=== PATIENT | male | born 1970 | race Caucasian/White ===

== ENCOUNTER 2022-05-13 22:49 | Inpatient (IN) ==
[2022-05-14 00:18] LABS: Basophils # (auto) 0.05 K/uL (0-0.2); Basophils % (auto) 0.9 %; Eosinophils # (auto) 0.38 K/uL (0-0.50); Hemoglobin 13.7 g/dl (14.0-18.0); Immature Granulocytes # (auto) 0.01 K/uL (0.00-0.02); Immature Granulocytes % (auto) 0.2 %; Lymphocytes # (auto) 1.64 K/uL (1.2-3.4); Lymphocytes % (auto) 30.1 %; Mean Corpuscular Hemoglobin 29.8 pg (25.0-34.0); Mean Corpuscular Hgb Conc 34.3 g/dL (32.0-36.0); Mean Corpuscular Volume 87.1 fL (80.0-100.0); Mean Platelet Volume 10.6 fL (9.4-12.4); Monocytes % (auto) 9.2 %; Neutrophils # (auto) 2.86 K/uL (1.4-6.5); Neutrophils % (auto) 52.6 %; Platelet Count 259 K/uL (130-400); RDW Coefficient of Variation 13.8 % (11.5-14.5); Red Blood Count 4.59 M/uL (4.63-6.08); White Blood Count 5.44 K/ul (4.8-10.8)
[2022-05-14 00:32] LABS: Albumin Globulin Ratio 1.5 (0.9-2); Albumin Level 4.4 gm/dl (3.4-5.0); BUN Creatinine Ratio 15.9 (10-20); Bilirubin,Total 0.5 mg/dl (0.2-1.0); Calcium 9.3 mg/dl (8.5-10.1); Creatinine Clr Calc Pharmacy 79.4 ml/min; Est GFR (African American) 67.6 ml/min; Est GFR (Non-African American) 58.4 ml/min; Globulin 2.9 gm/dl (2.5-4.0); Potassium 3.8 mmol/L (3.5-5.1); Total Protein 7.3 gm/dl (6.0-8.3)
[2022-05-14 00:36] LABS: Troponin I High Sensitivity 33.9 pg/ml (0-20)
--- NOTE | 2022-05-14 00:47 | Emergency Department Note ---
Impression & Plan Acute non-ST elevation myocardial infarction (NSTEMI) Admit to the [facility] ED Provider Note NAME: ALEX RAZATE JR AGE: 51 SEX: M ARRIVES VIA: Walk-In INFORMANT: Patient ED PROVIDER(S): Letty Wang DO CHIEF COMPLAINT: Abnormal EKG PLAN: Disposition: Admit to the [facility] Condition: Guarded MEDICAL DECISION MAKING: This is a 51-year-old male patient who was directed to come here to the emergency department by the retail store clerk on-call who read his EKG from 2 days ago and noted that it was abnormal. The patient had been having these episodes where he felt a hot sensation in his head and some chest discomfort in his upper chest which prompted him to see his PCP on Saturday. At that time, they did an EKG in the office which was noted to be abnormal. He was referred to a retail store clerk for final interpretation. The retail store clerk interpreted today and contacted the patient to come to the ER for evaluation. The retail store clerk forwarded that EKG to us here in the emergency department. I reviewed it and it exhibits ST segment elevation in the inferior leads concerning for ischemia. Today's EKG in the emergency department is completely normal. 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 He had no associated symptoms while doing so. The patient has an elevated troponin here in the emergency department. His presentation is concerning for NSTEMI. He will be heparinized. [facility] Nursing notes reviewed and agree with them. Prior medical records reviewed Vital Signs: reviewed and remarkable for hypertension Differential diagnosis: Cardiac ischemia, STEMI, NSTEMI, angina ER treatment provided: Oral aspirin IV heparin drip Diagnostics interpreted by me: ECG: Normal sinus rhythm at a rate of [address] segment elevation or signs of ischemia. There is no ectopy. Cardiac Monitoring: Normal sinus rhythm at 88 Laboratory studies: See below Imaging studies: As per my interpretation Portable chest x-ray: No acute pulmonary infiltrates or consolidations HPI: 51/M arrives for evaluation of abnormal EKG. Patient was seen by his PCP on Saturday for episodes of chest discomfort in his upper chest that were concerning for indigestion versus cardiac chest pain. The patient had an EKG at that time which was thought to be abnormal. He was referred to a retail store clerk for final interpretation. The retail store clerk interpreted the EKG tonight and contacted the patient to come to the emergency department because the EKG was noted to be abnormal. ROS: See above HPI for pertinent positives & negatives. A total of 10 systems reviewed and were otherwise negative. PAST MEDICAL HISTORY:Prediabetes PAST SURGICAL HISTORY:See Below FAMILY HISTORY:Patient's father has heart disease SOCIAL HISTORY:See Below HOME MEDICATIONS:See list ALLERGIES:See list VITALS:See Below PHYSICAL EXAMINATION: HEENT: Head - normocephalic and atraumatic Pupils are equal, round, and reactive to light. Extraocular eye muscles are intact, and sclera are anicteric. Nose - moist nasal mucosa without discharge. Mouth - moist buccal mucosa. Oropharynx is nonerythematous and there is no tonsillar exudate or edema noted. Neck: Supple; no cervical lymphadenopathy noted Heart: Regular rate and rhythm. There is a normal S1 and S2 with no murmurs, clicks, or gallops appreciated. Lungs: Clear to auscultation bilaterally with no wheezes, rales, or rhonchi. Abdomen: Soft, completely nontender, nondistended, with good bowel sounds. There are no palpable pulsatile masses or hepatosplenomegaly. There is no guarding, rigidity, or rebound noted. Extremities: No evidence of cyanosis, clubbing, or edema. There are easily palpable peripheral pulses. Skin: warm and dry with good turgor and no rashes. ED COURSE: Times/Reassessments: 2355: The patient was evaluated in room A-3. A complete history and physical was performed. A twelve-lead EKG was obtained today and compared to the one from Saturday. An IV lock was initiated and labs are drawn as above. An order was placed for continuous cardiac monitoring. The patient was in a normal sinus rhythm at a rate of 88. Patient was given aspirin. A chest x-ray was performed. Patient was asymptomatic here in the emergency department. Heparin drip was started. Letty Wang DO Past Med/Surg History Medical History Obesity Pre-diabetes Surgical History History of colonoscopy History of tonsillectomy [place] teeth removed HX Family History Mother Family history of cancer Cancer Breast cancer Brain cancer Father Hypertension Other No family history of adverse response to anesthesia No family history of bleeding disorder Denies family history of Heart disease Stroke Asthma Social History Smoking Status: Former smoker Tobacco Type: Cigarettes packs per day: 0.5; Years Smoked: 20; Hx Alcohol Use: No Hx Substance Use: No Preferred Language: Frisian Communication Ability: Effective Herbicide Service Sales Representative Required: No Beliefs That Will Affect Care: None marital status: Current Living Situation: Alone Current Living Situation Comment: DAUGHTER THERE 3-4 DAYS A WEEK 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: Yes Assistive Devices: None Allergies Allergies Allergy/AdvReac Type Severity Reaction Status Date / Time Penicillins Allergy Unknown PT DOESN'T Verified 05/04/21 07:25 KNOW, BEEN TOLD SINCE A KID Home Meds Home Medications Medication Instructions Recorded Confirmed metformin 500 mg tablet 500 mg PO BID 04/25/22 05/13/22 pantoprazole 40 mg tablet,delayed 40 mg PO DAILY 05/13/22 05/13/22 release Previous Rx's Medication Instructions Recorded aspirin 81 mg tablet,delayed 81 mg PO QAM #100 tabs 05/15/22 release atorvastatin 40 mg tablet 40 mg PO HS #30 tabs 05/15/22 metoprolol tartrate 25 mg tablet 12.5 mg PO BID #60 tabs 05/15/22 nitroglycerin 0.4 mg sublingual 0.4 mg sublingual Q5M PRN chest 05/15/22 tablet pain #25 tabs ticagrelor 90 mg tablet (Brilinta) 90 mg PO BID #60 tabs 05/15/22 Results & Data (ED) Vital Signs Vital Signs - 24 hr 05/13/22 22:54 05/14/22 00:31 05/14/22 00:31 Temperature 36.5 C Temperature Source Temporal Artery Scan Pulse Rate 94 H 88 Pulse Rate [Finger] 88 Pulse Rhythm Regular Pulse Rhythm [Finger] Regular Pulse Strength [Finger] Normal Respiratory Rate 20 20 18 Respiratory Effort / Characteristics Non-Labored Spontaneous Non-Labored Spontaneous Respiratory Depth Normal Normal Blood Pressure 156/101 H Blood Pressure [Right Arm] 168/119 H Blood Pressure Mean 119 Blood Pressure Mean [Right Arm] 135 Blood Pressure Position [Right Arm] Sitting Pulse Oximetry 97 99 99 Oxygen Delivery Method Room Air Room Air Room Air Sepsis Recent Fever Within 48 Hours No Sepsis New/Unexplained Change in Mental Status No Sepsis Action Taken by Nursing No Action Required Laboratory Data Result diagrams: 05/15/22 05:52 05/15/22 05:52 Lab Results 05/13/22 05/13/22 05/13/22 Range/Units 23:10 23:10 23:10 WBC 5.44 (4.8-10.8) K/ul RBC 4.59 L (4.63-6.08) M/uL Hgb 13.7 L (14.0-18.0) g/dl Hct 40.0 L (40.1-51.0) % MCV 87.1 (80.0-100.0) fL MCH 29.8 (25.0-34.0) pg MCHC 34.3 (32.0-36.0) g/dL RDW Std Deviation 44.0 (36.4-46.3) fL RDW Coeff of Rafaela 13.8 (11.5-14.5) % Plt Count 259 (130-400) K/uL MPV 10.6 (9.4-12.4) fL Immature Gran % (Auto) 0.2 % Neut % (Auto) 52.6 % Lymph % (Auto) 30.1 % Lyman % (Auto) 9.2 % Eos % (Auto) 7.0 % Baso % (Auto) 0.9 % Neut # (Auto) 2.86 (1.4-6.5) K/uL Lymph # (Auto) 1.64 (1.2-3.4) K/uL Lyman # (Auto) 0.50 (0.24-0.82) K/uL Eos # (Auto) 0.38 (0-0.50) K/uL Baso # (Auto) 0.05 (0-0.2) K/uL Immature Gran # (Auto) 0.01 (0.00-0.02) K/uL APTT 27.1 (21.0-31.0) Seconds PTT Ratio 1.0 Sodium 138 (136-145) mmol/L Potassium 3.8 (3.5-5.1) mmol/L Chloride 104 (98-107) mmol/L Carbon Dioxide 27 (21-32) mmol/L Anion Gap 7 (3-11) BUN 22 (6-23) mg/dl Creatinine 1.38 (0.6-1.4) mg/dl Est Cr Clr Drug Dosing 79.4 ml/min Est GFR ( Amer) 67.6 ml/min Est GFR (Non-Af Amer) 58.4 ml/min BUN/Creatinine Ratio 15.9 (10-20) Glucose 143 H (70-99(Fasting)) mg/dl Calcium 9.3 (8.5-10.1) mg/dl Total Bilirubin 0.5 (0.2-1.0) mg/dl AST 33 (13-39) U/L ALT 27 (7-52) U/L Alkaline Phosphatase 76 (34-104) U/L Troponin I High Sens 33.9 H (0-20) pg/ml Total Protein 7.3 (6.0-8.3) gm/dl Albumin 4.4 (3.4-5.0) gm/dl Globulin 2.9 (2.5-4.0) gm/dl Albumin/Globulin Ratio 1.5 (0.9-2) Lipase 27 (11-82) U/L SARS-CoV-2, RNA, NAAT (NEGATIVE) 05/14/22 Range/Units 01:36 WBC (4.8-10.8) K/ul RBC (4.63-6.08) M/uL Hgb (14.0-18.0) g/dl Hct (40.1-51.0) % MCV (80.0-100.0) fL MCH (25.0-34.0) pg MCHC (32.0-36.0) g/dL RDW Std Deviation (36.4-46.3) fL RDW Coeff of Rafaela (11.5-14.5) % Plt Count (130-400) K/uL MPV (9.4-12.4) fL Immature Gran % (Auto) % Neut % (Auto) % Lymph % (Auto) % Lyman % (Auto) % Eos % (Auto) % Baso % (Auto) % Neut # (Auto) (1.4-6.5) K/uL Lymph # (Auto) (1.2-3.4) K/uL Lyman # (Auto) (0.24-0.82) K/uL Eos # (Auto) (0-0.50) K/uL Baso # (Auto) (0-0.2) K/uL Immature Gran # (Auto) (0.00-0.02) K/uL APTT (21.0-31.0) Seconds PTT Ratio Sodium (136-145) mmol/L Potassium (3.5-5.1) mmol/L Chloride (98-107) mmol/L Carbon Dioxide (21-32) mmol/L Anion Gap (3-11) BUN (6-23) mg/dl Creatinine (0.6-1.4) mg/dl Est Cr Clr Drug Dosing ml/min Est GFR ( Amer) ml/min Est GFR (Non-Af Amer) ml/min BUN/Creatinine Ratio (10-20) Glucose (70-99(Fasting)) mg/dl Calcium (8.5-10.1) mg/dl Total Bilirubin (0.2-1.0) mg/dl AST (13-39) U/L ALT (7-52) U/L Alkaline Phosphatase (34-104) U/L Troponin I High Sens (0-20) pg/ml Total Protein (6.0-8.3) gm/dl Albumin (3.4-5.0) gm/dl Globulin (2.5-4.0) gm/dl Albumin/Globulin Ratio (0.9-2) Lipase (11-82) U/L SARS-CoV-2, RNA, NAAT NEGATIVE (NEGATIVE) Administered Medications Discontinued Medications Aspirin (Aspirin Chew 324 Mg) 324 mg PO NOW STA Stop: 05/14/22 01:42 Last Admin: 05/14/22 01:52 Dose: 324 mg Documented By: KAMRAN [facility]irin ([facility]in 81 Mg Ectab) [facility] Stop: 06/13/22 08:59 Last Admin: 05/15/22 08:14 Dose: 81 mg Documented By: Admin: 05/14/22 08:41 Dose: 81 mg Documented By: MOISES Atorvastatin Calcium (Atorvastatin 40 Mg Tab) 40 mg PO NOW STA Stop: 05/14/22 01:58 Last Admin: 05/14/22 02:16 Dose: 40 mg Documented By: KAMRAN Atorvastatin Calcium (Atorvastatin 40 Mg Tab) 40 mg PO HS [facility] Stop: 06/13/22 20:59 Last Admin: 05/14/22 21:00 Dose: 40 mg Documented By: DINH Clopidogrel Bisulfate (Clopidogrel Bisulfate 300 Mg Tab) Confirm Administered Dose 600 mg .ROUTE .STK-MED ONE Stop: 05/14/22 11:51 Last Admin: 05/14/22 11:58 Dose: Not Given Documented By: EMA Fentanyl Citrate (Fentanyl Citrate 100 Mcg/2 Ml Vial) Confirm Administered Dose 100 mcg .ROUTE .STK-MED ONE Stop: 05/14/22 10:40 Last Admin: 05/14/22 11:43 Dose: 100 mcg Documented By: EMA Heparin Sodium (Porcine) (Heparin (Porcine) 1000 Unit/Ml 10 Ml (Wrapper Sizer Use Only)) Confirm Administered Dose 10,000 units .ROUTE .STK-MED ONE Stop: 05/14/22 10:40 Last Admin: 05/14/22 11:44 Dose: 7,000 units Documented By: EMA Heparin Sodium/Sodium Chloride (Heparin In Nss Infusion 1000 Unit/500 Ml (2 U/Ml) Bag) Confirm Administered Dose 3,000 units IV .STK-MED ONE Stop: 05/14/22 10:41 Last Admin: 05/14/22 11:44 Dose: 3,000 units Documented By: LUIS Heparin Sodium/Dextrose (Heparin Sodium/Dextrose) 25,000 units in 500 mls @ 34 mls/hr IV .[id number] [facility]; Protocol Stop: 06/13/22 01:59 Last Titration: 05/14/22 15:44 Dose: 0 units/hr, 0 mls/hr Documented By: MOISES Co-signed By: KTS Titration: 05/14/22 10:15 Dose: 0 units/hr, 0 mls/hr Documented By: MOISES Co-signed By: DTT Titration: 05/14/22 09:27 Dose: 1,700 units/hr, 34 mls/hr Documented By: MOISES Co-signed By: KTS Admin: 05/14/22 01:52 Dose: 1,600 units/hr, 32 mls/hr Documented By: KAMRAN Co-signed By: DEWAYNE Potassium Chloride/Sodium Chloride (Normal Saline W/20 Meq Kcl) 20 meq in 1,000 mls @ 100 mls/hr IV .Q10H MCKAYLA Stop: 05/14/22 13:44 Last Infusion: 05/14/22 10:15 Dose: 0 mls/hr Documented By: Admin: 05/14/22 03:46 Dose: 100 mls/hr Documented By: DINH Sodium Chloride (Nss 1000ml) 1,000 mls @ 80 mls/hr IV .[id number] MCKAYLA Stop: 06/13/22 09:29 Last Infusion: 05/15/22 09:47 Dose: 0 mls/hr Documented By: Admin: 05/14/22 22:35 Dose: 80 mls/hr Documented By: Admin: 05/14/22 16:06 Dose: Not Given Documented By: MOISES Insulin Aspart (Insulin Aspart Per Unit) 0 units SC Q6 MCKAYLA Stop: 06/13/22 05:59 Last Admin: 05/14/22 15:44 Dose: Not Given Documented By: Admin: 05/14/22 05:56 Dose: Not Given Documented By: DINH Insulin Aspart (Insulin Aspart Per Unit) 0 units SC ACHS MCKAYLA Stop: 06/13/22 05:59 Last Admin: 05/15/22 11:39 Dose: Not Given Documented By: Admin: 05/15/22 08:00 Dose: Not Given Documented By: Admin: 05/14/22 21:02 Dose: Not Given Documented By: DINH Metoprolol Succinate (Metoprolol Succ 25mg Ext Rel Tab) 25 mg PO NOW STA Stop: 05/14/22 01:54 Last Admin: 05/14/22 02:16 Dose: 25 mg Documented By: KAMRAN Metoprolol Tartrate (Metoprolol Tartrate 25 Mg Tab) 12.5 mg PO BID [facility] Stop: 06/13/22 20:59 Last Admin: 05/15/22 08:15 Dose: 12.5 mg Documented By: Admin: 05/14/22 21:00 Dose: 12.5 mg Documented By: DINH Midazolam HCl (Midazolam Hcl 1 Mg/Ml 2ml Vial) Confirm Administered Dose 2 mg .ROUTE .STK-MED ONE Stop: 05/14/22 10:41 Last Admin: 05/14/22 11:44 Dose: 2 mg Documented By: EMA Nicardipine HCl (Nicardipine Hcl Inj 2.5 Mg/Ml 10 Ml Amp) Confirm Administered Dose 25 mg .ROUTE .STK-MED ONE Stop: 05/14/22 10:40 Last Admin: 05/14/22 11:44 Dose: 25 mg Documented By: LUIS Nitroglycerin/Dextrose (Nitroglycerin/D5w 100mcg/Ml 20ml Syr) Confirm Administered Dose 2,000 mcg .ROUTE .STK-MED ONE Stop: 05/14/22 10:41 Last Admin: 05/14/22 11:44 Dose: 2,000 mcg Documented By: LUIS Pantoprazole Sodium (Pantoprazole 40 Mg Tab) 40 mg PO DAILY MCKAYLA Stop: 06/13/22 08:59 Last Admin: 05/15/22 08:15 Dose: 40 mg Documented By: Admin: 05/14/22 08:41 Dose: 40 mg Documented By: MOISES Ticagrelor (Ticagrelor 90 Mg Tab) Confirm Administered Dose 180 mg .ROUTE .STK- MED ONE Stop: 05/14/22 11:58 Last Admin: 05/14/22 11:59 Dose: 180 mg Documented By: EMA Ticagrelor (Ticagrelor 90 Mg Tab) 90 mg PO BID MCKAYLA Stop: 06/13/22 20:59 Last Admin: 05/15/22 08:15 Dose: 90 mg Documented By: Admin: 05/14/22 21:00 Dose: 90 mg Documented By: Discharge Plan Visit Data Chief Complaint: Abnormal Labs/Diagnostic Testing Stated Complaint: ABNORMAL EKG ED Provider: Letty Wang Discharge Problem: Acute non-ST elevation myocardial infarction (NSTEMI) Patient Disposition: Admitted As Inpatient Discharge Instructions Interventions: ED Discharge Assessment Last Done: 05/14/22 02:49
[2022-05-14] MEDS ORDERED: Heparin IV Adult Wt-Based Standard *NO* Bolus Protocol IV ONE (01:36)
[2022-05-14] MEDS ORDERED: ASPIRIN CHEW 324 MG PO STA (01:41)
[2022-05-14] MEDS ORDERED: METOPROLOL SUCC 25MG EXT REL TAB PO STA (01:53)
[2022-05-14] MEDS ORDERED: ATORVASTATIN 40 MG TAB PO STA (01:57)
[2022-05-14] MEDS ORDERED: HEPARIN SODIUM/DEXTROSE 25,000 UNITS/500 ML BAG IV SCH (02:00)
[2022-05-14 02:06] LABS: Partial Thromboplastin Time 27.1 Seconds (21.0-31.0)
--- NOTE | 2022-05-14 02:06 | History & Physical Report ---
Date of Service May 14, 2022 Assessment & Plan (1) Subsequent ST elevation (STEMI) myocardial infarction of inferior wall: Plan: Inferior wall STEMI/elevated blood pressure- The patient will be admitted to telemetry for serial cardiac enzymes, serial EKG's, cardiac rhythm monitoring and a 2-D echocardiogram with Dopplers. EKG from [address] elevations in leads II, III and aVF EKG today shows normal sinus rhythm with no acute ST-T changes given aspirin 324 mg in the ED, and start heparin drip per protocol Aspirin 81 mg every morning Give atorvastatin 40 mg now and metoprolol succinate 25 mg p.o. now, and continue both daily Consult Dr. Kalpesh Tellez, interventional cardiology (2) Elevated blood pressure reading: Plan: See above (3) Obesity: Plan: BMI 34.2 (4) Pre-diabetes: Plan: Hold metformin Placed on Accu-Cheks before meals and at bedtime with NovoLog coverage per scale Check hemoglobin A1c Consider starting Jardiance History of Present Illness Chief Complaint: The patient presents to the emergency department after being referred by cardiology Dr. Walsh, who read his EKG performed as an outpatient 2 days ago as being abnormal. Primary Care Provider: Jolynn Townsend PA-C The patient is a 51-year-old male with a past medical history including prediabetes CAD, and obesity, who reports having 2 weeks on and off of facial flushing sensation, sensation of warmth, indigestion, accompanied by shortness of breath. The symptoms will happen with or without activity, and was self-l imited. He denies any recent travels or known sick exposures. 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 Review of EKG performed [address] elevation AR in inferior leads. EKG performed in the ED this evening is normal sinus rhythm, with no acute ST-T changes. Recommendation to the ED now is to give aspirin 324mg , and start heparin drip and follow-up per protocol. The patient will also be given atorvastatin 40 mg now, and metoprolol succinate 25 mg p.o. now Allergies Allergy/AdvReac Type Severity Reaction Status Date / Time Penicillins Allergy Unknown PT DOESN'T Verified 05/04/21 07:25 KNOW, BEEN TOLD SINCE A KID Home Medications Medication Instructions Recorded Confirmed Type metformin 500 mg tablet 500 mg PO BID 04/25/22 05/13/22 History pantoprazole 40 mg tablet,delayed 40 mg PO DAILY 05/13/22 05/13/22 History release Past Med/Surg History Medical History (Updated 05/14/22 @ 02:35 by Mane Olmos MD) Obesity Pre-diabetes Surgical History History of colonoscopy History of tonsillectomy [place] teeth removed HX Family History (Updated 04/25/22 @ 08:03 by Jolene Barton) Mother Family history of cancer Cancer Breast cancer Brain cancer Father Hypertension Other No family history of adverse response to anesthesia No family history of bleeding disorder Denies family history of Heart disease Stroke Asthma Social History (Updated 04/25/22 @ 08:04 by Jolene Barton) Smoking Status: Never smoker Tobacco Type: Cigarettes packs per day: 0.5; Years Smoked: 20; Hx Alcohol Use: No Hx Substance Use: No Preferred Language: Maltese Communication Ability: Effective Sole Rougher Required: No Beliefs That Will Affect Care: None marital status: Current Living Situation: Alone and Family Current Living Situation Comment: DAUGHTER THERE 3-4 DAYS A WEEK 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: Yes Assistive Devices: Glasses Review of Systems Review of Systems: The patient at this time denies chest pain, palpitations, shortness of breath, dyspnea on exertion, cough, lower extremity swelling, sore throat, fevers, chills, sweats, weight change, fatigue, nausea, vomiting, diarrhea , constipation, abdominal pain, pelvic pain, blood in urine or stool, dysuria, urinary frequency or urgency, lightheadedness, dizziness, headache, memory loss, loss of consciousness, rash, abnormal bruising or bleeding, imbalance, focal or generalized weakness, numbness or tingling in arms or legs, generalized arthralgias or myalgias, back or neck pain, or night sweats. The review of systems is otherwise negative other than for that already noted above, and at least 10 systems have been reviewed. Physical Exam Physical Exam: The patient is awake, alert and oriented 3, well developed and well nourished, normocephalic and atraumatic, lying in bed and in no acute distress. HEENT--PERRL, EOMI, mucous membranes and oropharynx normal. Neck--supple. No JVD. No bruits. Thyroid normal, trachea midline, no adenopathy. Heart--normal S1 and S2. No murmurs, rubs or gallops. Lungs--clear bilaterally, no respiratory distress, no accessory muscle use. Abdomen--normal bowel sounds and soft. Nontender. Nondistended, no hernias or masses, no organomegaly. Extremities--no cyanosis or clubbing. No edema. Dermatologic--normal skin turgor, normal color, no abnormal lymph nodes, no rash. Neurologic--cranial nerves II through XII grossly intact. Rheumatologic--normal range of motion. Psychiatric--normal affect. Results & Data Results & Data ([facility]) Vital Signs (Past 12 Hours) Vital Signs Temp Pulse Pulse Resp BP BP Pulse Ox 05/14/22 00:31 88 18 99 05/14/22 00:31 88 20 168/119 H 99 05/13/22 22:54 36.5 C 94 H 20 156/101 H 97 O2 Del Method 05/14/22 00:31 Room Air 05/14/22 00:31 Room Air 05/13/22 22:54 Room Air Laboratory Results Laboratory Results WBC 5.44 K/ul (4.8-10.8) 05/13/22 23:10 RBC 4.59 M/uL (4.63-6.08) L 05/13/22 23:10 Hgb 13.7 g/dl (14.0-18.0) L 05/13/22 23:10 Hct 40.0 % (40.1-51.0) L 05/13/22 23:10 MCV 87.1 fL (80.0-100.0) 05/13/22 23:10 MCH 29.8 pg (25.0-34.0) 05/13/22 23:10 MCHC 34.3 g/dL (32.0-36.0) 05/13/22 23:10 RDW Std Deviation 44.0 fL (36.4-46.3) 05/13/22 23:10 RDW Coeff of Rafaela 13.8 % (11.5-14.5) 05/13/22 23:10 Plt Count 259 K/uL (130-400) 05/13/22 23:10 MPV 10.6 fL (9.4-12.4) 05/13/22 23:10 Immature Gran % (Auto) 0.2 % 05/13/22 23:10 Neut % (Auto) 52.6 % 05/13/22 23:10 Lymph % (Auto) 30.1 % 05/13/22 23:10 [place]ascade % (Auto) 9.2 % 05/13/22 23:10 Eos % (Auto) 7.0 % 05/13/22 23:10 Baso % (Auto) 0.9 % 05/13/22 23:10 Neut # (Auto) 2.86 K/uL (1.4-6.5) 05/13/22 23:10 Lymph # (Auto) 1.64 K/uL (1.2-3.4) 05/13/22 23:10 [place]ascade # (Auto) 0.50 K/uL (0.24-0.82) 05/13/22 23:10 Eos # (Auto) 0.38 K/uL (0-0.50) 05/13/22 23:10 Baso # (Auto) 0.05 K/uL (0-0.2) 05/13/22 23:10 Immature Gran # (Auto) 0.01 K/uL (0.00-0.02) 05/13/22 23:10 APTT 27.1 Seconds (21.0-31.0) 05/13/22 23:10 PTT Ratio 1.0 05/13/22 23:10 Sodium 138 mmol/L (136-145) 05/13/22 23:10 Potassium 3.8 mmol/L (3.5-5.1) 05/13/22 23:10 Chloride 104 mmol/L (98-107) 05/13/22 23:10 Carbon Dioxide 27 mmol/L (21-32) 05/13/22 23:10 Anion Gap 7 (3-11) 05/13/22 23:10 BUN 22 mg/dl (6-23) 05/13/22 23:10 Creatinine 1.38 mg/dl (0.6-1.4) 05/13/22 23:10 Est Cr Clr Drug Dosing 79.4 ml/min 05/13/22 23:10 Est GFR ( Amer) 67.6 ml/min 05/13/22 23:10 Est GFR (Non-Af Amer) 58.4 ml/min 05/13/22 23:10 BUN/Creatinine Ratio 15.9 (10-20) 05/13/22 23:10 Glucose 143 mg/dl (70-99(Fasting)) H 05/13/22 23:10 Calcium 9.3 mg/dl (8.5-10.1) 05/13/22 23:10 Total Bilirubin 0.5 mg/dl (0.2-1.0) 05/13/22 23:10 AST 33 U/L (13-39) 05/13/22 23:10 ALT 27 U/L (7-52) 05/13/22 23:10 Alkaline Phosphatase 76 U/L (34-104) 05/13/22 23:10 Troponin I High Sens 33.9 pg/ml (0-20) H 05/13/22 23:10 Total Protein 7.3 gm/dl (6.0-8.3) 05/13/22 23:10 Albumin 4.4 gm/dl (3.4-5.0) 05/13/22 23:10 Globulin 2.9 gm/dl (2.5-4.0) 05/13/22 23:10 Albumin/Globulin Ratio 1.5 (0.9-2) 05/13/22 23:10 Lipase 27 U/L (11-82) 05/13/22 23:10 SARS-CoV-2, RNA, NAAT NEGATIVE (NEGATIVE) 05/14/22 01:36 Code Status & VTE Plan Code Status Full code VTE Prophylaxis Plan VTE Prophylaxis will be ordered: Yes PG Care Time/CCT Total # of Minutes Spent Total Time Spent with Patient: Total time spent is greater than 50% in coordination of care (as documented) at patient's floor/unit and/or counseling patient: Coding Level of Care Code 12156 Initial Inpt Care Lvl [address] elevation (STEMI) myocardial infarction of inferior wall I22.1 Elevated blood pressure reading R03.0 Obesity E66.9 Pre-diabetes R73.03
[2022-05-14] MEDS ORDERED: GLUCOSE 40% GEL 15 GM TUBE PO PRN (03:15)
[2022-05-14] MEDS ORDERED: ACETAMINOPHEN 325 MG TAB PO PRN (03:15)
[2022-05-14] MEDS ORDERED: GLUCAGON FOR INJ 1 MG VIAL SQ PRN (03:15)
[2022-05-14] MEDS ORDERED: ONDANSETRON INJ 2 MG/ML 2 ML VIAL IV PRN (03:15)
[2022-05-14] MEDS ORDERED: CARBOHYDRATES FOR HYPOGLYCEMIA PO PRN (03:15)
[2022-05-14] MEDS ORDERED: GLUCOSE 10 TAB/TUBE PO PRN (03:15)
[2022-05-14] MEDS ORDERED: DEXTROSE 50% 50 ML SYRINGE IV PRN (03:15)
[2022-05-14] MEDS ORDERED: NSS + 20MEQ KCL 20 MEQ/1,000 ML BAG IV SCH (03:45)
[2022-05-14 04:08] LABS: Basophils # (auto) 0.07 K/uL (0-0.2); Basophils % (auto) 1.2 %; Eosinophils # (auto) 0.47 K/uL (0-0.50); Eosinophils % (auto) 8.2 %; Hematocrit (blood only) 39.8 % (40.1-51.0); Hemoglobin 13.5 g/dl (14.0-18.0); Immature Granulocytes # (auto) 0.02 K/uL (0.00-0.02); Immature Granulocytes % (auto) 0.3 %; Lymphocytes # (auto) 2.12 K/uL (1.2-3.4); Lymphocytes % (auto) 36.9 %; Mean Corpuscular Hemoglobin 29.6 pg (25.0-34.0); Mean Corpuscular Hgb Conc 33.9 g/dL (32.0-36.0); Mean Corpuscular Volume 87.3 fL (80.0-100.0); Mean Platelet Volume 10.3 fL (9.4-12.4); Monocytes # (auto) 0.49 K/uL (0.24-0.82); Monocytes % (auto) 8.5 %; Neutrophils # (auto) 2.57 K/uL (1.4-6.5); Neutrophils % (auto) 44.9 %; Platelet Count 251 K/uL (130-400); RDW Coefficient of Variation 13.6 % (11.5-14.5); RDW Standard Deviation 43.3 fL (36.4-46.3); Red Blood Count 4.56 M/uL (4.63-6.08); White Blood Count 5.74 K/ul (4.8-10.8)
[2022-05-14 04:35] LABS: BUN Creatinine Ratio 20.6 (10-20); Creatinine Clr Calc Pharmacy 107.5 ml/min; Est GFR (African American) 97.5 ml/min; Est GFR (Non-African American) 84.1 ml/min; Phosphorus 3.7 mg/dl (2.5-4.9); Potassium 3.9 mmol/L (3.5-5.1)
[2022-05-14 04:37] LABS: Chol HDL Ratio 5.4 (0-5)
[2022-05-14] MEDS: INSULIN ASPART PER UNIT SC SCH ×3 (05:56→21:02)
[2022-05-14 07:46] LABS: Estimated Average Glucose 140 mg/dl; Hemoglobin A1C 6.5 % (4.5-5.6)
--- NOTE | 2022-05-14 08:24 | Electrocardiogram Report ---
Test Reason : Blood Pressure : / mmHG Vent. Rate : 083 BPM Atrial Rate : 083 BPM P-R Int : 148 ms QRS Dur : 084 ms QT Int : 356 ms P-R-T Axes : 065 035 013 degrees QTc Int : 418 ms Normal sinus rhythm Normal ECG When compared with ECG of 29-NOV-1994 20:15, Vent. rate has increased BY 27 BPM Confirmed by Beck Araya ([id number]) on 05/14/2022 8:23:49 AM Referred By: Jolynn Townsend Confirmed By:Beck Araya
[2022-05-14 08:25] LABS: INR 1.1 (0.9-1.1); Prothrombin Time 11.2 Seconds (9.0-12.0)
[2022-05-14] MEDS: PANTOprazole 40 MG TAB PO SCH (08:41)
[2022-05-14] MEDS: ASPIRIN 81 MG ECTAB PO SCH (08:41)
--- NOTE | 2022-05-14 08:54 | XCELERA ---
[id number]
[2022-05-14] MEDS ORDERED: ASPIRIN 81 MG ECTAB PO SCH (09:00)
--- NOTE | 2022-05-14 09:03 | XRay Report ---
XR chest 1V portable HISTORY: 51 years-old Male Chest Pain acute chest pain COMPARISON: None TECHNIQUE: Portable AP view the chest FINDINGS: Healed chronic mid left clavicular fracture deformity. The cardiac silhouette is mildly enlarged. The re is no pneumothorax, pleural effusion, airspace consolidation or overt pulmonary edema. IMPRESSION: No acute process. ACT 112: Negative or not required by law. The above report was generated using voice recognition software. It may contain grammatical, syntax o r spelling errors. Electronically signed by: Ming Ashraf M.D. 05/14/2022 9:02 AM
[2022-05-14 09:07] LABS: Partial Thromboplastin Ratio 1.5; Partial Thromboplastin Time 41.2 Seconds (21.0-31.0)
--- NOTE | 2022-05-14 10:28 | Pre Anesthesia Assessment ---
Date of Service May 14, 2022 Pre Sedation Assessment Vital Signs Temp Pulse Pulse Resp BP BP Pulse Ox 05/14/22 07:36 36.6 C 62 16 132/73 97 05/14/22 03:15 05/14/22 03:52 73 05/14/22 03:16 36.6 C 75 16 162/95 H 97 05/14/22 02:18 80 20 125/101 H 96 05/14/22 00:31 88 18 99 05/14/22 00:31 88 20 168/119 H 99 05/13/22 22:54 36.5 C 94 H 20 156/101 H 97 Pulse Ox O2 Del Method O2 Del Method 05/14/22 07:36 Room Air 05/14/22 03:15 98 Room Air 05/14/22 03:52 05/14/22 03:16 Room Air 05/14/22 02:18 Room Air 05/14/22 00:31 Room Air 05/14/22 00:31 Room Air 05/13/22 22:54 Room Air Cardiovascular RRR, no murmur, no edema Respiratory normal respiratory effort, lungs clear to auscultation Pre-Sedation Airway Assessment Smoking Status: Former smoker Hx Sleep Apnea: No Hx Difficult Intubation: No Short, Thick Neck: Yes Mallampati Class: II ASA 3 Notes The planned sedation has been discussed with the patient. Informed Consent was obtained. I have identified the patient, determined the appropriateness of sedation and have assessed the patient immediately prior to the procedure. All medicine(s) and interventions are by my order.
[2022-05-14] MEDS ORDERED: HEPARIN (PORCINE) 1000 UNIT/ML 10 ML (CATH LAB USE ONLY) ONE (10:39)
[2022-05-14] MEDS ORDERED: niCARdipine HCL INJ 2.5 MG/ML 10 ML AMP ONE (10:39)
[2022-05-14] MEDS ORDERED: fentaNYL citrate 100 MCG/2 ML VIAL ONE (10:39)
[2022-05-14] MEDS ORDERED: MIDAZOLAM HCL 1 MG/ML 2ML VIAL ONE (10:40)
[2022-05-14] MEDS ORDERED: NITROGLYCERIN/D5W 100MCG/ML 20ML SYR ONE (10:40)
[2022-05-14] MEDS ORDERED: CLOPIDOGREL BISULFATE 300 MG TAB ONE (11:50)
[2022-05-14] MEDS ORDERED: TICAGRELOR 90 MG TAB ONE (11:57)
--- NOTE | 2022-05-14 13:52 | Hospitalist Progress Note ---
Date of Service May 14, 2022 Assessment & Plan (1) Subsequent ST elevation (STEMI) myocardial infarction of inferior wall: Plan: The LA probably occurred several days prior to this admission. The patient is currently asymptomatic. He underwent cardiac catheterization today and was found to have a high-grade OM1 ostial stenosis that was angioplastied and stente d. He eventually will be on Brilinta amongst other medications. Cardiology will see him again daily until discharge which could be as early as tomorrow, May 15 (2) Elevated blood pressure reading: Plan: Now normalized. Continue current medical management. (3) Obesity: Plan: BMI 34.2 (4) Pre-diabetes: Plan: Hold metformin while hospitalized. ADA diet. Sliding scale coverage. Plan Eventual discharge to home, possibly tomorrowMay 15 Admission and Anticipated Discharge Date Admission Date: May 14, 2022 Subjective The patient was seen in the post heart cath recovery unit. He had a PTCA and stent procedure involving the first obtuse marginal branch without complication. I spoke with cardiology, Dr. Babar Long, who will continue to see the patient through discharge which could be as early as tomorrowMay 15. Cardiac echo reveals ejection fraction of 50 to 55% with mild inferior wall hypokinesis as expected. Review of Systems Review of Systems: Constitutional-no fever or chills ENT-no blurred vision, no double vision, no epistaxis, no sore throat Respiratory-no cough, no wheezing, no shortness of breath Cardiac-no palpitations, no chest pain, no syncope GI-no nausea, vomiting, diarrhea, melena, hematochezia -no urinary retention, no urinary incontinence, no dysuria, no hematuria Musculoskeletal-no joint pain, no muscle tenderness Skin-no bruising, no rashes, no pruritus Neuro-no isolated weakness, no paresthesia, no weakness Psych-no depression, no anxiety Physical Exam Physical Exam: General-alert and oriented x3, no fevers, no chills HEENT-head atraumatic and normocephalic, pupils equal and reactive to light, extraocular muscles intact Neck-no lymphadenopathy or thyromegaly, trachea midline Chest-clear to auscultation percussion. No rales wheezing or rhonchi Cardiac-regular rate and rhythm, normal S1 and S2, no murmurs Abdomen-normal bowel sounds, nontender, no hepatosplenomegaly Extremities-no cyanosis, clubbing, or edema. No active bleeding seen at cath site Neuro-cranial nerves II through XII intact, motor and sensory function within normal limits, strength symmetrical , no focal deficits Psych-normal affect, normal mood Results & Data Results & Data ([facility]) Vital Signs (Past 12 Hours) Vital Signs Temp Pulse Pulse Resp BP Pulse Ox Pulse Ox 05/14/22 13:30 55 L 14 162/95 H 98 05/14/22 13:15 60 14 177/111 H 98 05/14/22 13:00 65 14 173/91 H 98 05/14/22 12:45 75 14 157/103 H 98 05/14/22 12:30 69 14 154/103 H 98 05/14/22 12:15 75 14 142/103 H 98 05/14/22 12:05 65 16 154/108 H 98 05/14/22 10:27 72 17 149/95 H 98 05/14/22 07:36 36.6 C 62 16 132/73 97 05/14/22 03:15 98 05/14/22 03:52 73 05/14/22 03:16 36.6 C 75 16 162/95 H 97 05/14/22 02:18 80 20 125/101 H 96 O2 Del Method O2 Del Method 05/14/22 13:30 Room Air 05/14/22 13:15 Room Air 05/14/22 13:00 Room Air 05/14/22 12:45 Room Air 05/14/22 12:30 Room Air 05/14/22 12:15 Room Air 05/14/22 12:05 Room Air 05/14/22 10:27 Room Air 05/14/22 07:36 Room Air 05/14/22 03:15 Room Air 05/14/22 03:52 05/14/22 03:16 Room Air 05/14/22 02:18 Room Air Laboratory Results 05/14/22 03:57 05/14/22 03:57 PG Care Time/CCT Total # of Minutes Spent Total Time Spent with Patient: Total time spent is greater than 50% in coordination of care (as documented) at patient's floor/unit and/or counseling patient: Coding Level of Care Code 59484 Subseq Hosp Care Lvl [address] elevation (STEMI) myocardial infarction of inferior wall I22.1 Elevated blood pressure reading R03.0 Obesity E66.9 Pre-diabetes R73.03
--- NOTE | 2022-05-14 15:48 | Post Anesthesia Assessment ---
Date of Service May 14, 2022 Post Sedation Assessment Vital Signs Temp Pulse Pulse Resp BP BP Pulse Ox 05/14/22 15:30 66 14 160/96 H 98 05/14/22 15:15 68 14 142/83 H 98 05/14/22 15:10 69 14 141/92 H 98 05/14/22 15:05 66 14 132/93 98 05/14/22 15:00 68 14 128/90 98 05/14/22 14:45 68 14 152/76 H 98 05/14/22 14:30 68 14 156/87 H 98 05/14/22 14:15 66 14 153/94 H 98 05/14/22 14:00 57 L 14 155/95 H 98 05/14/22 13:45 57 L 14 166/83 H 98 05/14/22 13:30 55 L 14 162/95 H 98 05/14/22 13:15 60 14 177/111 H 98 05/14/22 13:00 65 14 173/91 H 98 05/14/22 12:45 75 14 157/103 H 98 05/14/22 12:30 69 14 154/103 H 98 05/14/22 12:15 75 14 142/103 H 98 05/14/22 12:05 65 16 154/108 H 98 05/14/22 10:27 72 17 149/95 H 98 05/14/22 07:36 36.6 C 62 16 132/73 97 05/14/22 03:15 05/14/22 03:52 73 05/14/22 03:16 36.6 C 75 16 162/95 H 97 05/14/22 02:18 80 20 125/101 H 96 05/14/22 00:31 88 18 99 05/14/22 00:31 88 20 168/119 H 99 05/13/22 22:54 36.5 C 94 H 20 156/101 H 97 Pulse Ox O2 Del Method O2 Del Method 05/14/22 15:30 Room Air 05/14/22 15:15 Room Air 05/14/22 15:10 Room Air 05/14/22 15:05 Room Air 05/14/22 15:00 Room Air 05/14/22 14:45 Room Air 05/14/22 14:30 Room Air 05/14/22 14:15 Room Air 05/14/22 14:00 Room Air 05/14/22 13:45 Room Air 05/14/22 13:30 Room Air 05/14/22 13:15 Room Air 05/14/22 13:00 Room Air 05/14/22 12:45 Room Air 05/14/22 12:30 Room Air 05/14/22 12:15 Room Air 05/14/22 12:05 Room Air 05/14/22 10:27 Room Air 05/14/22 07:36 Room Air 05/14/22 03:15 98 Room Air 05/14/22 03:52 05/14/22 03:16 Room Air 05/14/22 02:18 Room Air 05/14/22 00:31 Room Air 05/14/22 00:31 Room Air 05/13/22 22:54 Room Air Recovery Score Activity: Moves 4 extremities Respiration: Deep Breath/Cough Circulation: +/-20% PreAnes Value Consciousness: Fully Awake Oxygen Saturation: > 92% On Room Air Post Anesthesia Score: 10 Discharge Sedation Level of Care: Phase I Post Sedation Plan On clinical assessment, the patient appears to have tolerated the sedation without complications. Patient is recovering as anticipated. Patient will continue to be monitored by nursing and may be discharged when sedation discharge criteria are met per below protocol. Upon Completions of procedure up to 15 minutes continue every 5 minute vital signs and the P.A.R. score; then discharge to a Phase I or Fast Track to Phase II per the following guidelines: * Discharge Patient to appropriate Phase II area if PAR is 8 or greater or return to pre- procedure baseline. The post - procedure orders will be as directed. * If PAR score is less than 8 or not return to pre-procedure baseline then patient will follow Phase I monitoring till PAR is reached for Phase II. The Phase I may be done in procedure room or may call to secure a Phase I area. * If naloxone or flumazenil are used for reversal, hold in Phase I for continued monitoring from when last reversal dose was given for a minimum of 60 minutes or longer pending the nurse and/or physician discretion of patient condition before discharge to Phase II. Please call the Sedation Physician to re-evaluate and complete post-note for discharge to Phase II area. Do NOT discharge from procedure sedation or Phase 1 until post- sedation evaluation note is complete by procedure /sedation MD Sedation Discharge Instructions to be given to the patient at discharge to home. [facility] Procedure Codes (Charges) Indication for Procedure Indication for procedure: NSTEMI Sedation/Anesthesia Procedure 1: Sedation/Anesthesia: 65821 Mod Sedation by the same physician;Init15 Min Child Age 5 & Up Total Sedation Time (minutes): 70 Procedure 2: Sedation/Anesthesia: 24502 Mod Sedation by the same physician; Ea [id number] Minutes (additional 55 minutes) Total Sedation Time (minutes): 70
[2022-05-14] MEDS: SODIUM CHLORIDE 0.9% 1000ML 1,000 ML IV SCH ×2 (16:06→22:35)
[2022-05-14 16:11] LABS: Basophils # (auto) 0.06 K/uL (0-0.2); Eosinophils # (auto) 0.38 K/uL (0-0.50); Eosinophils % (auto) 6.4 %; Hematocrit (blood only) 43.1 % (40.1-51.0); Hemoglobin 14.5 g/dl (14.0-18.0); Immature Granulocytes # (auto) 0.02 K/uL (0.00-0.02); Immature Granulocytes % (auto) 0.3 %; Lymphocytes # (auto) 1.34 K/uL (1.2-3.4); Lymphocytes % (auto) 22.5 %; Mean Corpuscular Hemoglobin 29.9 pg (25.0-34.0); Mean Corpuscular Hgb Conc 33.6 g/dL (32.0-36.0); Mean Corpuscular Volume 88.9 fL (80.0-100.0); Mean Platelet Volume 10.1 fL (9.4-12.4); Monocytes # (auto) 0.45 K/uL (0.24-0.82); Monocytes % (auto) 7.6 %; Neutrophils # (auto) 3.71 K/uL (1.4-6.5); Neutrophils % (auto) 62.2 %; Platelet Count 249 K/uL (130-400); RDW Coefficient of Variation 13.8 % (11.5-14.5); RDW Standard Deviation 44.7 fL (36.4-46.3); Red Blood Count 4.85 M/uL (4.63-6.08); White Blood Count 5.96 K/ul (4.8-10.8)
--- NOTE | 2022-05-14 16:12 | Cardiac Catheterization ---
ACC Data: Catering Server Cardiac Status Clinical evaluation leading to the procedure CAD Presenation: Non STEMI Anginal Classification: CCS IV Heart Failure: No Cardiogenic Shock within 24 Hours: No Cardiac Arrest within 24 Hours: No Imaging Studies Past 6 Months: No Stress Studies Past 6 Months: No STEMI OR Non-STEMI Symptom Onset Date: 05/10/22 Coronary Anatomy Dominant: Right Left Main (% Stenosis): Distal (20 to 30%) LAD (% Stenosis): Proximal (30%) D1 (% Stenosis): Proximal (50 to 60%) and Mid (99% (small caliber vessel)) Circumflex (% Stenosis): Normal OM1 (% Stenosis): Mid (90%, FERNANDO II flow) OM2 (% Stenosis): Normal L PL1 (% Stenosis): Normal RCA (% Stenosis): Proximal (30 to 40%) and Distal (50% before bifurcation) R PDA (% Stenosis): Normal (Mild) R PL1 (% Stenosis): Normal Diagnostic Physicians Name: Eliud Long MD, PhD Closure Device Percutaneous Entry Location: Femoral Closure Device: None-Manual Hold Recommendations: PCI without planned CABG PCI Indication: PCI for high risk Non-KATHYA Lesion Segment Name: Proximal OM1 Culprit Artery: Yes Stenosis Prior to Rx (%): 90% Chronic Total Occlusion: No Pre-Procedure FERNANDO Flow: 2 Previously Treated Lesion: No Lesion Complexity: Non-High/Non-C Lesion Length (mm): 12 Thrombus Present: No Guidewire Across Lesion: Yes Intraprocedure Events Significant Disection: No Perforation: No Cardiac Cath Procedure Full Procedure Date May 14, 2022 Pre-Procedure Diagnosis Pre-Procedure Diagnosis: Non STEMI AUC Score AUC Score: 07 Post-Procedure Diagnosis Post-Procedure Diagnosis: Severe CAD Procedure(s) Performed Procedure(s) Performed: Coronary Angiography, Drug Eluting Stent and Ultrasound Guided Vascular Access Ice Bag Assembler Eliud Long MD, PhD Estimated Blood Loss Estimated Blood Loss: 20 ml Medication(s) Medication(s): Fentanyl, Heparin, Lidocaine 1%, Nicardipine, Nitroglycerin and Versed Summary of Findings Brief description: Patient was brought to the cardiac catheterization suite where he was shaved and prepped in a sterile fashion. Sedated using IV Versed and fentanyl. Soft tissues of the right wrist were anesthetized using 2 mL of 1% Xylocaine. The right radial artery was accessed using a modified Seldinger technique and a 6 Swiss radial artery glide sheath was placed. Patient was provided anticoagulation with IV heparin and antispasmodics including verapamil and nitroglycerin. All catheters were advanced and exchanged over a 0.035 J-tip wire. Attempts to cannulate the left main were made with multiple catheters including a 5 Swiss [place], 5 Swiss JL 4, and multiple attempts at right coronary angiography were performed using the 5 Swiss [place], 5 Swiss JR4, and it became evident that we would not be able to successfully cannulate the patient's coronaries because of the sharp angle imposed by the orientation of the heart as well as the innominate artery. We therefore abandoned radial artery approach. Soft tissues of right groin were anesthetized using 10 mL of 1% Xylocaine. Using the ultrasound for guidance (image saved) the right femoral artery was accessed and a 5 Swiss femoral artery sheath was placed. Left coronary angiography was performed in orthogonal views with a 5 Swiss JL 4 diagnostic catheter. Right coronary angiography was performed in orthogonal views with a 5 Swiss 3 DRC diagnostic catheter. We then proceeded with PCI of the OM1/ramus branch of the circumflex. ACT was checked and additional heparin was provided. ACT was intermittently checked and IV heparin provided to keep ACT within therapeutic window. 5 Swiss EBU 3.5 guide catheter was used to engage the left main coronary artery. Through this, a BMW universal guidewire was advanced and positioned distally in the obtuse marginal branch. Over this, a 2.5 x 12 mm trek balloon was advanced and positioned across the lesion. The lesion was predilated with 2 inflations of 8 edward. The balloon was then removed. A 2.5 x 18 mm fabiana point drug-eluting stent was then advanced over the guidewire and positioned across the lesion. This was deployed using 11 edward. Stent balloon was then removed and supervisor order takers angiography was performed. Finally, a 2.5 x 9 mm noncompliant balloon was advanced over the guidewire and positioned within the stent. The proximal and midportion of the stent were postdilated using 10 edward followed by 11 edward. Balloon was removed. Coronary guidewire was then removed. Final angiographic evaluation was performed. The guide catheter was then removed. Limited right femoral artery angiography was performed to evaluate for closure. However, findings were not favorable. The ACT was checked and the sheath was sutured in place to be removed and manual compression held for hemostasis once ACT was less than 160 seconds. The radial artery sheath was removed and hemostasis was obtained using a TR band. Patient was hemodynamically stable and asymptomatic. He was returned to the recovery area. This ended the case. Coronary angiography and PCI: LMT: Large-caliber vessel which bifurcates into LAD and circumflex. Distally there is a 20 to 30% calcified stenosis. LAD: Large caliber and transapical. Gives a large caliber branching first diagonal. The proximal LAD has less than 30% stenosis. The proximal first diagonal has a 50 to 60% stenosis then bifurcates into a large branch and a smaller branch. The smaller branch has 99% proximal stenosis while the large branch has mild diffuse disease. The mid and distal LAD have mild diffuse disease. Left circumflex: This is a large caliber and nondominant. Travels in the AV groove. There is a large caliber high arising OM1 which branches distally. This vessel has a mid segment stenosis of 90%. There is FERNANDO II flow in this vessel. This is the culprit lesion for the non-ST elevation VA. The mid AV groove circumflex has mild plaque and then provides a small OM 2. Distally the vessel becomes a large caliber posterolateral branch with no more than mild scattered plaques. RCA: Large caliber and dominant. Proximally there is a 30 to 40% stenosis. The mid vessel has mild disease. The distal vessel has mild luminal irregularities then a 50% focal stenosis before the bifurcation. The PDA is large with mild disease. The posterior lateral branch is small without significant disease. PCI of OM 1: 0% residual stenosis post PCI No evidence of dissection or perforation post PCI FERNANDO-3 flow post PCI Hemodynamics Rest Ao:: 133/94 mmHg, mean 112 mmHg Final Ao: 146/87 mmHg, mean 114 mmHg LV: Not performed Recommendations Recommendations: PCI without planned CABG Radiation Exposure (mGy) 2974 mGy, 12.9 minutes fluoroscopy time Contrast (mls) 200 mL Anesthesia 2 mg IV Versed, 100 mcg IV fentanyl Procedural Complication(s) None Disposition Recovery Room\PACU I attest to the content of the Intraoperative Record and any orders documented therein. Any exceptions are noted below. [facility] Card Cath Procedure Codes Cardiac Catheterization Procedure 1: Cardiovascular Cath Procedures: 00754 Coronaries Therapeutic Services & Ancillary Procedure 1: Cardiovascular Tx and Anc Procedures: 41796 Ultrasonic Guidance Vascular Access Moderate Sedation Procedure 1: Sedation/Anesthesia: 82484 Mod Sedation by the same physician;Init15 Min Child Age 5 & Up Procedure 2: Sedation/Anesthesia: 24384 Mod Sedation by the same physician; Ea [id number] Minutes (Total sedation time 70 minutes) Stenting Procedure 1: Cardiovascular Stent Procedures: 56163 Perc transcatheter placement of intracoronary stent(s), with ang (OM) PG Care Time/CCT Total # of Minutes Spent Total Time Spent with Patient: Total time spent is greater than 50% in coordination of care (as documented) at patient's floor/unit and/or counseling patient:
--- NOTE | 2022-05-14 16:18 | Cardiology Consultation ---
Date of Consultation May 14, 2022 Assessment & Plan (1) Acute non-ST elevation myocardial infarction (NSTEMI): Status post PCI with culprit lesion in the OM. He will be on dual antiplatelet therapy with aspirin 81 mg daily and Brilinta 90 mg twice daily for 1 to 2 years. Guideline directed medical therapy will include high intensity statin, beta-francisco, and AL inhibitor/ARB given diabetes. Present on Admission?: Yes (2) Atherogenic dyslipidemia: Patient is considered high risk (coronary disease and diabetes). High intensity statin therapy with a atorvastatin 40 mg daily has been initiated. Aggressive LDL reduction is recommended with target LDL less than or equal to 50% of baseline untreated LDL. Fasting lipid panel will be checked at this time. Present on Admission?: Yes (3) Benign essential hypertension: Blood pressure is labile but remains above target. He will be on beta-francisco and AL inhibitor/ARB. If he needs additional blood pressure control then we can consider long-acting nitrate. Present on Admission?: Yes Plan Since patient likely had his non-ST elevation UT on he will likely be ready for discharge tomorrow as long as he tolerates new medications and achieves target blood pressure and heart rate prior to discharge. This assumes no complications overnight. History of Present Illness Reason for Consultation: Non-ST elevation UT Attending Physician: Fran Swanson MD History of Present Illness Pleasant 51-year-old gentleman who has diabetes but no prior cardiac history. On he developed chest discomfort occurring at rest. It resolved within about 30 minutes. He saw his primary care provider and reported to chest discomfort. An EKG was then performed. Patient also evidently had some lab work checked. He then received a phone call telling him that he should go to the emergency department because of his EKG and lab work. He subsequently went to the emergency department. EKG here did not demonstrate any ST elevations or ST depressions. He had no symptoms since arrival. He reports indigestion type symptoms which were "high up" and then he pointed substernally. He has not had any of those symptoms since arrival. He denies any preceding symptoms before . He denies ongoing tobacco abuse. He denies syncope, near syncope, orthopnea, PND, racing heartbeat, palpitations, or edema. 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 He only came to the hospital on Saturday because of the phone call he received. Currently he has no chest discomfort. We discussed his reported abnormal EKG (I am unable to review) and his current blood work. I discussed risk benefits and alternatives to cardiac catheterization. His questions were answered in full. He voiced understanding and wished to proceed with coronary angiography as I had recommended. Patient then went to the cardiac catheterization suite where he was found to have 2 severe coronary blockages. One was in a small branch of the diagonal and was not amenable to PCI. The other was in a large OM branch. He underwent successful PCI of this lesion using a drug-eluting stent. He has mild to moderate residual coronary disease in other vessels as described in the cath report. He is currently feeling well. His echocardiogram showed preserved low normal EF and only mild wall motion abnormality. Allergies Allergy/AdvReac Type Severity Reaction Status Date / Time Penicillins Allergy Unknown PT DOESN'T Verified 05/04/21 07:25 KNOW, BEEN TOLD SINCE A KID Home Medications Medication Instructions Recorded Confirmed Type metformin 500 mg tablet 500 mg PO BID 04/25/22 05/13/22 History pantoprazole 40 mg tablet,delayed 40 mg PO DAILY 05/13/22 05/13/22 History release Patient History Medical History Obesity Pre-diabetes Surgical History History of colonoscopy History of tonsillectomy [place] teeth removed HX Family History Mother Family history of cancer Cancer Breast cancer Brain cancer Father Hypertension Other No family history of adverse response to anesthesia No family history of bleeding disorder Denies family history of Heart disease Stroke Asthma Social History Smoking Status: Former smoker Tobacco Type: Cigarettes packs per day: 0.5; Years Smoked: 20; Do You Dip or Chew Tobacco: No; Hx Alcohol Use: No Hx Substance Use: No Preferred Language: British Communication Ability: Effective Photographic Reproduction Technician Required: No Beliefs That Will Affect Care: None marital status: Current Living Situation: Alone Current Living Situation Comment: DAUGHTER THERE 3-4 DAYS A WEEK current occupational status: employed current occupation: [employer] Service Other Information That Helps Us Care for You: No Feels Safe at Home: Yes Safety Concerns: Feels Safe At This Time Assistive Devices: None Review of Systems Review of Systems: Denies fevers, chills, cough, sputum production, epigastric discomfort, abdominal pain, nausea, vomiting, diarrhea, melena, dysuria, hematuria, hemoptysis, numbness, tingling, confusion, difficulty ambulating, or weakness. The remainder of his 12 point review of systems is negative except as per HPI. Physical Exam Constitutional: WD/WN, vitals as above Eyes: PERRL, conjunctivae normal, anicteric sclerae ENMT: external ear and nose normal, oropharynx normal Neck: No JVD, no bruits Respiratory: normal respiratory effort, lungs clear to auscultation (No wheezing, rhonchi, or rales) Cardiovascular: Regular rate and rhythm. S4 gallop. Soft systolic murmur. 2+ distal pulses. No edema. Gastrointestinal (Abdomen): Nontender. Normal active bowel sounds. Musculoskeletal: no cyanosis or clubbing, extremities motor strength 5/5 Neurologic: Cognition is intact. Speech is fluent. There is no focal motor deficits. No tremor. Psychiatric: A+Ox3, euthymic affect Results & Data ([facility]) Vital Signs (Past 12 Hours) Vital Signs Temp Pulse Resp BP Pulse Ox O2 Del Method 05/14/22 15:30 66 14 160/96 H 98 Room Air 05/14/22 15:15 68 14 142/83 H 98 Room Air 05/14/22 15:10 69 14 141/92 H 98 Room Air 05/14/22 15:05 66 14 132/93 98 Room Air 05/14/22 15:00 68 14 128/90 98 Room Air 05/14/22 14:45 68 14 152/76 H 98 Room Air 05/14/22 14:30 68 14 156/87 H 98 Room Air 05/14/22 14:15 66 14 153/94 H 98 Room Air 05/14/22 14:00 57 L 14 155/95 H 98 Room Air 05/14/22 13:45 57 L 14 166/83 H 98 Room Air 05/14/22 13:30 55 L 14 162/95 H 98 Room Air 05/14/22 13:15 60 14 177/111 H 98 Room Air 05/14/22 13:00 65 14 173/91 H 98 Room Air 05/14/22 12:45 75 14 157/103 H 98 Room Air 05/14/22 12:30 69 14 154/103 H 98 Room Air 05/14/22 12:15 75 14 142/103 H 98 Room Air 05/14/22 12:05 65 16 154/108 H 98 Room Air 05/14/22 10:27 72 17 149/95 H 98 Room Air 05/14/22 07:36 36.6 C 62 16 132/73 97 Room Air PG Care Time/CCT Total # of Minutes Spent Total Time Spent with Patient: Total time spent is greater than 50% in coordination of care (as documented) at patient's floor/unit and/or counseling patient: Coding Level of Care Code 26610 Inpt Consult Level 5 Diagnoses Acute non-ST elevation myocardial infarction (NSTEMI) I21.4 Atherogenic dyslipidemia E78.5 Benign essential hypertension I10
[2022-05-14] MEDS ORDERED: Nursing to Pharmacy Communication SCH (17:00)
[2022-05-14] MEDS ORDERED: ATORVASTATIN 40 MG TAB PO SCH (21:00)
[2022-05-14] MEDS: METOPROLOL TARTRATE 25 MG TAB PO SCH (21:00)
[2022-05-14] MEDS: TICAGRELOR 90 MG TAB PO SCH (21:00)
[2022-05-15 06:23] LABS: Basophils # (auto) 0.05 K/uL (0-0.2); Basophils % (auto) 0.8 %; Eosinophils # (auto) 0.35 K/uL (0-0.50); Eosinophils % (auto) 5.7 %; Hematocrit (blood only) 41.3 % (40.1-51.0); Hemoglobin 13.8 g/dl (14.0-18.0); Immature Granulocytes # (auto) 0.02 K/uL (0.00-0.02); Immature Granulocytes % (auto) 0.3 %; Lymphocytes # (auto) 1.37 K/uL (1.2-3.4); Lymphocytes % (auto) 22.4 %; Mean Corpuscular Hemoglobin 29.1 pg (25.0-34.0); Mean Corpuscular Hgb Conc 33.4 g/dL (32.0-36.0); Mean Corpuscular Volume 87.1 fL (80.0-100.0); Mean Platelet Volume 10.4 fL (9.4-12.4); Monocytes # (auto) 0.47 K/uL (0.24-0.82); Monocytes % (auto) 7.7 %; Neutrophils # (auto) 3.85 K/uL (1.4-6.5); Neutrophils % (auto) 63.1 %; Platelet Count 245 K/uL (130-400); RDW Coefficient of Variation 13.4 % (11.5-14.5); RDW Standard Deviation 43.7 fL (36.4-46.3); Red Blood Count 4.74 M/uL (4.63-6.08); White Blood Count 6.11 K/ul (4.8-10.8)
[2022-05-15 06:44] LABS: BUN Creatinine Ratio 19.8 (10-20); Calcium 8.6 mg/dl (8.5-10.1); Est GFR (African American) 93.1 ml/min; Est GFR (Non-African American) 80.3 ml/min; Phosphorus 3.3 mg/dl (2.5-4.9); Potassium 4.1 mmol/L (3.5-5.1)
[2022-05-15] MEDS: INSULIN ASPART PER UNIT SC SCH ×2 (08:00→11:39)
[2022-05-15] MEDS: ASPIRIN 81 MG ECTAB PO SCH (08:14)
[2022-05-15] MEDS: METOPROLOL TARTRATE 25 MG TAB PO SCH (08:15)
[2022-05-15] MEDS: TICAGRELOR 90 MG TAB PO SCH (08:15)
[2022-05-15] MEDS: PANTOprazole 40 MG TAB PO SCH (08:15)
--- NOTE | 2022-05-15 12:00 | Discharge Summary ---
Date of Service May 15, 2022 Admission HPI Per Admitting Provider The patient is a 51-year-old male with a past medical history including prediabetes CAD, and obesity, who reports having 2 weeks on and off of facial flushing sensation, sensation of warmth, indigestion, accompanied by shortness of breath. The symptoms will happen with or without activity, and was self- limited. He denies any recent travels or known sick exposures. 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 Review of EKG performed [address] elevation DE in inferior leads. EKG performed in the ED this evening is normal sinus rhythm, with no acute ST-T c hanges. Recommendation to the ED now is to give aspirin 324mg , and start heparin drip and follow-up per protocol. The patient will also be given atorvastatin 40 mg now, and metoprolol succinate 25 mg p.o. now Principal Diagnosis Acute inferior wall DE Discharge Exam General-alert and oriented x3, no fevers, no chills HEENT-head atraumatic and normocephalic, pupils equal and reactive to light, extraocular muscles intact Neck-no lymphadenopathy or thyromegaly, trachea midline Chest-clear to auscultation percussion. No rales wheezing or rhonchi Cardiac-regular rate and rhythm, normal S1 and S2, no murmurs Abdomen-normal bowel sounds, nontender, no hepatosplenomegaly Extremities-no cyanosis, clubbing, or edema. No active bleeding seen at cath site Neuro-cranial nerves II through XII intact, motor and sensory function within normal limits, strength symmetrical , no focal deficits Psych-normal affect, normal mood Discharge Data Allergies Allergy/AdvReac Type Severity Reaction Status Date / Time Penicillins Allergy Unknown PT DOESN'T Verified 05/04/21 07:25 KNOW, BEEN TOLD SINCE A KID Consultations 05/14/22 01:35 ED Decision to Admit Stat 05/14/22 02:37 Consult Cardiology Routine 05/14/22 12:13 Consult Cardiac Rehabilitation Routine Procedures Performed Operation Date: 05/14/22 10:00 Actual Procedures p Cath, Left with Cors and Vent - Eliud Long MD, PhD p Drug Eluting Stent SGl Vessel - Eliud Long MD, PhD s Ultrasound Vascular Access - Eliud Long MD, PhD s Cineradiography w/Routine Exam - Eliud Long MD, PhD Ordered Studies 05/14/22 10:36 CL Cath Imgs for PACS use only Urgent Hospital Course (1) Subsequent ST elevation (STEMI) myocardial infarction of inferior wall: The DE probably occurred several days prior to this admission. The patient remains asymptomatic. He underwent cardiac catheterization 05/14 and was found to have a high-grade OM1 ostial stenosis that was angioplastied and stented. He will be discharged on Brilinta/aspirin amongst other medications. Cardiology will see him in the office within 1 week. He will remain off work until then. (2) Elevated blood pressure reading: Now normalized. Continue current medical management. (3) Obesity: BMI 34.2 (4) Pre-diabetes: Hold metformin while hospitalized. May resume at discharge. ADA diet. Sliding scale coverage. Plan Discharge to home today, May 15. He will remain off work until he follows up with cardiology in 1 week. Total Time Total Time Spent Total Time Spent (In Minutes): 35 minutes Discharge Plan Discharge Items Patient Disposition: Home - Self-Care Reason For Visit: STEMI Discharge Diagnosis: Acute inferior wall DE Activity: As commented below Activity Comment: Remain off work until seen by cardiology within 1 week. Avoid overexertion Non-emergency contact: Primary Care Provider Call non-emergency contact if: you have any medication questions and your symptoms worsen Follow-up/Referrals: Jolynn Townsend PA-C [Primary Care Provider] - Diet: Heart Healthy Addtl Attending Provider Instructions: Remain off work until seen by cardiology. Call [facility] cardiology group and make a follow-up appointment with Dr. Long in 1 week. Take medications as directed. Use nitroglycerin under your tongue as directed for any recurrent chest discomfort Pending Studies at Discharge: No Stand-Alone Forms: My [facility] [employer], Smoking Cessation Medications and DC Order Prescriptions: New Brilinta 90 mg Tablet 90 mg PO BID Qty: 60 0RF atorvastatin 40 mg Tablet 40 mg PO HS Qty: 30 0RF aspirin 81 mg Tablet,Delayed Release (Dr/Ec) 81 mg PO QAM Qty: 100 0RF metoprolol tartrate 25 mg Tablet 12.5 mg PO BID Qty: 60 0RF nitroglycerin 0.4 mg tablet, sublingual 0.4 mg sublingual Q5M PRN (Reason: chest pain) Qty: 25 0RF Continued metformin 500 mg tablet 500 mg PO BID pantoprazole 40 mg tablet,delayed release (DR/EC) 40 mg PO DAILY Discharge Orders: Discharge Order (Routine); Ordered 05/15/22 Ordered By: Fran Dumont/Other Patient Handouts: Diabetes: Meal Planning, Type 2 Diabetes Admission Data Admit Date/Time: 05/14/22 02:06 Attending Provider: Fran Swanson Admit Provider: Mane Olmos Primary Care Provider: Jolynn Townsend Other Providers: Mane Olmos ; Edvin Tellez Coding Level of Care Code D/C DAY MANAGEMENT >[address] elevation (STEMI) myocardial infarction of inferior wall I22.1 Elevated blood pressure reading R03.0 Obesity E66.9 Pre-diabetes R73.03
== END 2022-05-15 12:46 | disposition home or self-care (01) | DRG 247 ==
LOC: ED 22:49 → 4W 05-14 02:06 → SUATTDRO 05-14 02:06 → 4W 05-14 02:49
DX: E78.5 Hyperlipidemia, unspecified; Z68.34 Body mass index [BMI] 34.0-34.9, adult; I22.1 Subsequent ST elevation (STEMI) myocardial infarction of inferior wall; Z87.891 Personal history of nicotine dependence; Z79.84 Long term (current) use of oral hypoglycemic drugs; I10 Essential (primary) hypertension; Z79.82 Long term (current) use of aspirin; E66.9 Obesity, unspecified; Z88.0 Allergy status to penicillin; I25.2 Old myocardial infarction; I25.10 Atherosclerotic heart disease of native coronary artery without angina pectoris; E11.9 Type 2 diabetes mellitus without complications